=== PATIENT | female | born 1955 | race Caucasian/White ===

== ENCOUNTER → 2016-10-04 | Outpatient (CLI) | payer BC ==
--- NOTE | 2016-10-04 15:25 | MY ---
EXAMINATION: Left digital diagnostic mammogram. HISTORY: Screening exam. Comparison is made to previous studies dated abnormal screening. FINDINGS: A left ML view was obtained and a spot compression image was obtained in the medial aspe ct of the breast on the CC view. With spot compression, the previously visualized single view asymme try is not identified. This likely represents summation artifact. Otherwise, no abnormal mass or kike cification noted. IMPRESSION: BI-RADS category I - negative mammogram. Continued screening according to ACR-ACS gu idelines suggested. THE FALSE-NEGATIVE RATE OF MAMMOGRAM IS APPROXIMATELY 10%. MANAGEMENT OF A PALPABLE ABNORMALITY MUST BE BASED UPON CLINICAL GROUNDS. SENSITIVITY FOR DETECTION OF ABNORMALITIES IN DENSE BREASTS IS LOW. NOTE: A letter will be sent to the patient regarding findings. [facility] -- LAURA Price [phone] - FAX [phone]
== END ==
LOC: MW.MAM 09:52
PROVIDERS: ATTEND Nurse Practitioner Women's Health
DX: R92.2 Inconclusive mammogram (principal)
CPT/HCPCS: G0206-26-LT; G0206-LT

== ENCOUNTER 2018-12-10 15:47 | Observation (INO) | payer BC, OTHER ==
[2018-12-10] MEDS ORDERED: Sodium Chloride 0.9% 2.5 ML Syringe FLUSH PRN (15:56)
[2018-12-10] MEDS ORDERED: Ondansetron 4 MG/2 ML SDV IVPUSH ONE (15:56)
[2018-12-10] MEDS ORDERED: Sodium Chloride 0.9% 10 ML Syringe FLUSH PRN (15:56)
--- NOTE | 2018-12-10 15:57 | EDM.PDOC ---
ED HPI GENERAL MEDICAL PROBLEM - General Stated Complaint: FELL DOWN STAIRS Time Seen by Provider: 12/10/18 15:55 Source of Information: Reports: EMS History Limitations: Reports: No Limitations - History of Present Illness INITIAL COMMENTS - FREE TEXT/NARRATIVE: History of present illness: []Patient was on third step cleaning a window when she lost her balance and fell hit her head on concrete. She was brought in by EMS sitting up on a gurney had a normal blood blood sugar on scene and vomited once while being moved in the ambulance. Stated that she did not eat today but is amnestic to the event and to the date. Review of systems: As per history of present illness and below otherwise all systems reviewed and negative. Past medical history: As per history of present illness and as reviewed below otherwise noncontributory. Surgical history: As per history of present illness and as reviewed below otherwise noncontributory. Social history: No reported history of drug or alcohol abuse. Family history: As per history of present illness and as reviewed below otherwise noncontributory. Physical exam: General: Well developed, well nourished in NAD HEENT: Posterior scalp laceration, normocephalic, pupils reactive, negative for conjunctival pallor or scleral icterus, mucous membranes moist, throat clear, neck supple, nontender, trachea midline. Lungs: Clear to auscultation, breath sounds equal bilaterally, chest nontender. Heart: S1S2, regular, negative for clicks, rubs, or JVD. Abdomen: NABS, Soft, nondistended, nontender. Negative for masses or hepatosplenomegaly. Negative for costovertebral tenderness. Pelvis: Stable nontender. Genitourinary: Deferred. Rectal: Deferred. Extremities: Atraumatic, negative for cords or calf pain. Neurovascular unremarkable. Neuro: Awake, alert, confused and disoriented to time. Cranial nerves II through XII unremarkable. Cerebellum unremarkable. Motor and sensory unremarkable throughout. Exam nonfocal. Skin:warm and dry Diagnostics: CT head and cervical spine-negative Therapeutics: Scalp laceration closed with patsy ED Course: Patient remained stable Impression: Fall, scalp laceration, concussion Prescriptions: Plan: Admit to Dr. AVILES for observation Definitive disposition and diagnosis as appropriate pending reevaluation and review of above. Head Pain Score (Numeric/FACES): 2 - Related Data Allergies Allergy/AdvReac Type Severity Reaction Status Date / Time codeine Allergy Hives Verified 12/10/18 19:34 Home Meds: Home Meds Levothyroxine 25 mcg PO ACBREAKFAST 12/10/18 [History] ED ROS GENERAL - Review of Systems Review Of Systems: ROS reveals no pertinent complaints other than HPI. ED EXAM, HEAD INJURY - Physical Exam Exam: See Below (History of present illness) ED LACERATION/WOUND & ALEC PROC - Laceration/Wound Repair Scalp Appearance: Subcutaneous Skin Prep: Chlorhexidine (Hibiciens) Closed with: Patsy Drain Placement: No Sterile Dressing Applied: Nurse Tetanus Status Addressed: Yes Complications: No Course - Vital Signs Last Recorded V/S: Last Vital Signs Temp 98.2 F 12/11/18 07:37 Pulse 109 H 12/11/18 07:37 Resp 16 12/11/18 07:37 BP 125/74 12/11/18 07:37 Pulse Ox 98 12/11/18 07:37 - Orders/Labs/Meds Orders: Active Orders 24 hr Category Date Time Status Vaccines to be Administered [RC] PER UNIT ROUTINE Care 12/10/18 16:45 Active Sodium Chloride 0.9% [Saline Flush] Med 12/10/18 15:56 Active 10 ml FLUSH ASDIRECTED PRN Sodium Chloride 0.9% [Saline Flush] Med 12/10/18 15:56 Active 2.5 ml FLUSH ASDIRECTED PRN Saline Lock Insert [OM.PC] Stat Oth 12/10/18 15:55 Ordered Medication Orders Sodium Chloride (Saline Flush) 10 ml FLUSH ASDIRECTED PRN PRN Reason: Keep Vein Open Last Admin: 12/10/18 17:21 Dose: 10 ml Sodium Chloride (Saline Flush) 2.5 ml FLUSH ASDIRECTED PRN PRN Reason: Keep Vein Open Last Admin: 12/10/18 17:21 Dose: 2.5 ml Meds: Medications Generic Name Dose Route Start Last Admin Trade Name Freq PRN Reason Stop Dose Admin Sodium Chloride 10 ml 12/10/18 15:56 12/10/18 17:21 Saline Flush FLUSH 10 ml ASDIRECTED PRN Administration Keep Vein Open Sodium Chloride 2.5 ml 12/10/18 15:56 12/10/18 17:21 Saline Flush FLUSH 2.5 ml ASDIRECTED PRN Administration Keep Vein Open Discontinued Medications Generic Name Dose Route Start Last Admin Trade Name Freq PRN Reason Stop Dose Admin Diphtheria/Tetanus/Acell Pertussis 0.5 ml 12/10/18 16:45 12/10/18 17:15 Adacel IM 12/10/18 16:46 0.5 ml .ONCE ONE Administration Lidocaine HCl 5 ml 12/10/18 16:54 12/10/18 17:21 Xylocaine-Mpf 1% INJECT 12/10/18 16:55 Not Given ONETIME ONE Ondansetron HCl 4 mg 12/10/18 15:56 12/10/18 16:31 Zofran IVPUSH 12/10/18 15:57 4 mg ONETIME ONE Administration Departure - Departure Time of Disposition: 18:00 Disposition: Refer to Observation Clinical Impression: Concussion Qualifiers: Encounter type: initial encounter Loss of consciousness presence/duration: with LOC of unspecified duration Qualified Code(s): S06.0X9A - Concussion with loss of consciousness of unspecified duration, initial encounter Scalp laceration Qualifiers: Encounter type: initial encounter Qualified Code(s): S01.01XA - Laceration without foreign body of scalp, initial encounter Fall Qualifiers: Encounter type: initial encounter Qualified Code(s): W19.XXXA - Unspecified fall, initial encounter - Discharge Information *PRESCRIPTION DRUG MONITORING PROGRAM REVIEWED*: No *COPY OF PRESCRIPTION DRUG MONITORING REPORT IN PATIENT ASHUTOSH: No - My Orders Last 24 Hours: My Active Orders 12/10/18 15:55 Saline Lock Insert [OM.PC] Stat 12/10/18 15:56 Sodium Chloride 0.9% [Saline Flush] 10 ml FLUSH ASDIRECTED PRN Sodium Chloride 0.9% [Saline Flush] 2.5 ml FLUSH ASDIRECTED PRN 12/10/18 16:45 Vaccines to be Administered [RC] PER UNIT ROUTINE - Assessment/Plan Last 24 Hours: My Active Orders 12/10/18 15:55 Saline Lock Insert [OM.PC] Stat 12/10/18 15:56 Sodium Chloride 0.9% [Saline Flush] 10 ml FLUSH ASDIRECTED PRN Sodium Chloride 0.9% [Saline Flush] 2.5 ml FLUSH ASDIRECTED PRN 12/10/18 16:45 Vaccines to be Administered [RC] PER UNIT ROUTINE
--- NOTE | 2018-12-10 16:43 | CT ---
INDICATION: Fall TECHNIQUE: CT cervical spine without contrast. COMPARISON: None FINDINGS: Vertebral alignment: Alignment is normal. Vertebrae: There are no fractures or suspicious bony lesions. Discs and facet joints: Disc spaces and facets are within normal limits. Extraspinal findings: Prevertebral soft tissues, visualized airway, and visualized lungs are unremarkable. IMPRESSION: Unremarkable cervical spine CT. Dictated by Zain Hebert MD @ 12/10/2018 4:42:24 PM Please note that all CT scans at this facility use dose modulation, iterative reconstruction, and/or weight-based dosing when appropriate to reduce radiation dose to as low as reasonably achievable. Dictated by: Zain Hebert MD @ 12/10/2018 16:42:30 (Electronically Signed)
[2018-12-10] MEDS ORDERED: Diphtheria,Pertussis(Acell),Tetanus Vaccine 0.5 ML Syringe IM ONE (16:45)
--- NOTE | 2018-12-10 16:50 | CT ---
INDICATION: Syncope, fall, possible LOC TECHNIQUE: CT head without contrast. COMPARISON: None FINDINGS: CSF spaces: Within normal limits for age. Brain parenchyma: The minor-white differentiation is normal. No sign of mass, hemorrhage, or midline shift. Skull base and calvarium: The visualized paranasal sinuses and mastoid air cells demonstrate no acute or significant findings. The visualized orbits are grossly unremarkable. No skull fractures. High right parietal scalp hematoma with laceration. IMPRESSION: Right parietal scalp hematoma with no associated fractures or evidence of acute intracranial trauma. Dictated by Zain Hebert MD @ 12/10/2018 4:48:25 PM Please note that all CT scans at this facility use dose modulation, iterative reconstruction, and/or weight-based dosing when appropriate to reduce radiation dose to as low as reasonably achievable. Dictated by: Zain Hebert MD @ 12/10/2018 16:48:32 (Electronically Signed)
--- NOTE | 2018-12-11 11:14 | PCM.SN ---
- Free Text/Narrative Note: pt seen, chart reviewed; admit for observation for trauma SHIRLENE; [id number]
--- NOTE | 2018-12-11 12:49 | HP ---
DATE OF : 1955 PRIMARY CARE PHYSICIAN: None PCP ADMISSION DIAGNOSIS: Trauma observation. 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 Lost her balance, hit her head on concrete, and lost consciousness. She was brought in via EMS. At the ER, workup, negative hand and negative C-spine and had a normal blood glucose, but has a large laceration on the scalp. Surgery was consulted for trauma observation. The patient this morning is completely good. She knows that she lost consciousness, but she is alert and oriented x3, and she is very hungry. Denied any numbness or motor weakness. Denied prior episode. Denied shortness of breath. Denied chest pain. PAST MEDICAL HISTORY: Significant for hypothyroid and denied diabetes, MT, CVA, hypertension. PAST SURGICAL HISTORY: Unknown. ALLERGIES: Please refer to nursing for details. MEDICATION: Please refer to nursing for details. SOCIAL HISTORY: Unknown. PHYSICAL EXAMINATION: GENERAL: A very pleasant, nice lady in no acute distress. HEENT: With a turban dressing on her head and dressing is totally beautiful and clean. Sclerae anicteric. Nontender on the face. Tympanic membrane is intact. Trachea is midline. No subcu crepitus. LUNGS: Clear to auscultation. HEART: Regular rate and rhythm. NECK: No pain. BACK: Does not have any injury. ABDOMEN: Soft, nontender, nondistended. No pulsating midline abdominal structure. NEUROLOGIC: The patient is 5/5 on motor of bilateral upper extremity and bilateral lower extremity. ASSESSMENT AND PLANNING: The patient has sustained a fall, sustained a head trauma, and loss of consciousness. The patient is admitted to observation and will be examined in the morning. Followed with serial examination. ADILSON / RICCO /[id number]
== END 2018-12-11 13:05 | disposition home or self-care (01) ==
LOC: MW.ED 15:47 → MW.MS 17:01 → MW.ED 17:59
PROVIDERS: ADMIT Surgery; ATTEND Surgery
DX: S06.0X9A Concussion with loss of consciousness of unspecified duration, initial encounter (principal); S01.01XA Laceration without foreign body of scalp, initial encounter; E03.9 Hypothyroidism, unspecified; W18.39XA Other fall on same level, initial encounter; Z88.5 Allergy status to narcotic agent; Y93.H3 Activity, building and construction; Y99.0 Civilian activity done for income or pay
CPT/HCPCS: 70450; 72125; 90471; 90715; 96374; 99285; G0378; J2405

== ENCOUNTER 2019-03-12 06:39 | Day surgery (SDC) | payer BC, OTHER ==
[~2019-03-12 06:39] MED LIST: Lactated Ringers 1,000 ML IV SCH
--- NOTE | 2019-03-12 07:13 | PCM.PREANE ---
Preanesthetic Assessment - Anesthesia/Transfusion/Family Hx Anesthesia History: Prior Anesthesia Without Reaction Family History of Anesthesia Reaction: No Transfusion History: No Prior Transfusion(s) Intubation History: Unknown - Review of Systems General: No Symptoms Pulmonary: No Symptoms Cardiovascular: No Symptoms Gastrointestinal: No Symptoms, Other (screening, grandma had colon cancer) Neurological: No Symptoms Other: Reports: None - Physical Assessment Height: 4 ft 11 in Weight: 67.132 kg ASA Class: 2 Mental Status: Alert & Oriented x3 Airway Class: Mallampati = 2 Dentition: Reports: Dentures (upper and lower) Thyro-Mental Finger Breadths: 3 Mouth Opening Finger Breadths: 3 ROM/Head Extension: Full Lungs: Clear to Auscultation, Normal Respiratory Effort Cardiovascular: Regular Rate, Regular Rhythm - Allergies Allergies/Adverse Reactions: Allergies Allergy/AdvReac Type Severity Reaction Status Date / Time codeine Allergy Hives Verified 03/10/19 08:33 latex Allergy Rash Verified 03/10/19 08:34 Penicillins Allergy Hives Verified 03/10/19 08:34 - Blood Blood Available: No - Anesthesia Plan Pre-Op Medication Ordered: None - Acknowledgements Anesthesia Type Planned: MAC Pt an Appropriate Candidate for the Planned Anesthesia: Yes Alternatives and Risks of Anesthesia Discussed w Pt/Guardian: Yes Pt/Guardian Understands and Agrees with Anesthesia Plan: Yes PreAnesthesia Questionnaire HEENT History: Reports: Other (See Below) Other HEENT History: reading glasses, top and bottom denture Cardiovascular History: Reports: None Respiratory History: Reports: None Gastrointestinal History: Reports: None Genitourinary History: Reports: None COREMAKER BENCH History: Reports: None Musculoskeletal History: Reports: None Neurological History: Reports: Concussion, Vertigo Psychiatric History: Reports: None Endocrine/Metabolic History: Reports: Hypothyroidism Hematologic History: Reports: None Immunologic History: Reports: None Oncologic (Cancer) History: Reports: None Dermatologic History: Reports: None - Infectious Disease History Infectious Disease History: Reports: None - Past Surgical History Head Surgeries/Procedures: Reports: None HEENT Surgical History: Reports: None Cardiovascular Surgical History: Reports: None Respiratory Surgical History: Reports: None GI Surgical History: Reports: Appendectomy Female Surgical History: Reports: None Endocrine Surgical History: Reports: None, Thyroidectomy Neurological Surgical History: Reports: None Musculoskeletal Surgical History: Reports: None Oncologic Surgical History: Reports: None Dermatological Surgical History: Reports: None - SUBSTANCE USE Smoking Status *Q: Former Smoker Tobacco Use Within Last Twelve Months: No Recreational Drug Use History: No - HOME MEDS Home Medications: Home Meds Cholecalciferol (Vitamin D3) [Vitamin D3] 1,000 units PO DAILY 03/10/19 [History ] Cyanocobalamin (Vitamin B12) [Vitamin B12] 250 mcg PO DAILY 03/10/19 [History] Fish Oil/[place]-3 Fatty Acids [Fish Oil 1,000 MG] 1,000 mg PO DAILY 03/10/19 [ History] Garlic 1 tab PO DAILY 03/10/19 [History] Iron 18 mg PO DAILY 03/10/19 [History] Meclizine HCl [Travel Sickness] 1 tab PO ASDIRECTED PRN 03/10/19 [History] Selenium 100 mcg PO DAILY 03/10/19 [History] Thyroid,Pork [Nature-Throid] 130 mg PO DAILY 03/10/19 [History] - CURRENT (IN HOUSE) MEDS Current Meds: Current Medications Lactated Ringer's (Ringers, Lactated) 1,000 mls @ 125 mls/hr IV ASDIRECTED DAVID
[2019-03-12] MEDS ORDERED: Propofol 200 MG/20 ML SDV ONE (07:37)
[2019-03-12] MEDS ORDERED: Midazolam 1 MG/ML 2 ML SDV ONE (07:37)
[2019-03-12] MEDS ORDERED: Ondansetron 4 MG/2 ML SDV ONE (07:37)
[2019-03-12] MEDS ORDERED: fentaNYL 100 MCG/2 ML SDV ONE (07:37)
--- NOTE | 2019-03-12 08:23 | PCM.OPNOTE ---
- General Post-Op/Procedure Note Date of Surgery/Procedure: 03/12/19 Operative Procedure(s): colonoscopy Findings: see dict [id number] Pre Op Diagnosis: scrn colonoscopy Post-Op Diagnosis: diverticulosis Anesthesia Technique: Moderate Sedation Primary Surgeon: Chalino Lafleur Complications: None Condition: Good
--- NOTE | 2019-03-12 08:39 | PCM.POSTAN ---
POST ANESTHESIA ASSESSMENT - MENTAL STATUS Mental Status: Alert, Oriented - RESPIRATORY Respiratory Status: Respiratory Rate WNL, Airway Patent, O2 Saturation Stable - CARDIOVASCULAR CV Status: Pulse Rate WNL, Blood Pressure Stable - GASTROINTESTINAL GI Status: No Symptoms - PAIN Pain Score: 0 - POST OP HYDRATION Hydration Status: Adequate & Stable - OBSERVATIONS Free Text/Narrative:: No anesthesia problems, patient skipped recovery room stage of postoperative care.
--- NOTE | 2019-03-12 10:32 | OR ---
SURGEON: Chalino Lafleur MD DATE OF PROCEDURE: 03/12/2019 PREOPERATIVE DIAGNOSIS: Screening colonoscopy. POSTOPERATIVE DIAGNOSIS: Diverticulosis. PROCEDURE PERFORMED: Colonoscopy. DESCRIPTION OF PROCEDURE: The patient was taken to the endoscopy room. A time out was called, patient identified, and procedure identified. Diprivan was then administrated. Patient went from awake to sleep, hearing doctor talking or door closing is normal. Perineum inspection and digital examination were then performed. A well- lubricated colonoscope was gently inserted through the rectum, advanced past the rectosigmoid junction, the descending colon, splenic flexure, transverse colon, hepatic flexure, ascending colon, arrived to the cecum. Cecum was identified as dictated in the finding. Then the scope was carefully withdrawn while attention was paid to the mucosal surface for any abnormality. Air will be sucked out during the scope withdrawal. At the rectum, retroflexed to examine any rectal diseases, fistula or hemorrhoids. Patient tolerated procedure well. There were no intraoperative complications, and Dr. Lalfeur was present throughout the whole procedure. FINDINGS: 1. The patient is easily sedated with CRIMINAL PROFILER and Diprivan, the patient is soundly snoring. 2. Bowel prep is excellent, the best, not a speck of liquid stool or semi- formed stool. She really should be the example of all the bowel prep. She did a very good with bowel prep. 3. Colon rather straightforward. Cecum indicated by ileocecal fold, one-to- one indentation, and appendiceal orifice. Light emittance is not observed. Mucosa examined upon scope pulling out. The patient has a large amount of diverticulosis concentrated on the sigmoid colon. No signs or symptoms of diverticulitis and no polyp, inflammation, stricture, ulceration, AV malformation, bleeding, none of those. The patient does not have internal hemorrhoid. The patient has mild external hemorrhoid. The patient would benefit from repeat colonoscopy in 10 years from today or if clinically indicated otherwise. ADILSON / RICCO /[id number]
== END 2019-03-12 08:50 | disposition home or self-care (01) ==
LOC: MW.SDS 06:39
PROVIDERS: ATTEND Surgery
DX: Z12.11 Encounter for screening for malignant neoplasm of colon (principal); K57.30 Diverticulosis of large intestine without perforation or abscess without bleeding; K64.4 Residual hemorrhoidal skin tags; E03.9 Hypothyroidism, unspecified; Z88.5 Allergy status to narcotic agent; Z88.0 Allergy status to penicillin; Z91.040 Latex allergy status; Z87.891 Personal history of nicotine dependence; Z79.899 Other long term (current) drug therapy
CPT/HCPCS: 45378; J2250; J2405; J2704; J3010; J7120; 00812

== ENCOUNTER 2023-08-13 19:16 | Emergency (ER) | payer MEDICARE ==
[2023-08-13] MEDS ORDERED: Labetalol 100 MG/20 ML MDV IVPUSH ONE (19:45)
[2023-08-13 20:01] LABS: BASOPHILS ABSOLUTE AUTO 0.04 K/uL (0.00-0.20); BASOPHILS PERCENT AUTO 0.4 % (0.0-1.0); EOSINOPHILS ABSOLUTE AUTO 0.05 K/uL (0.00-0.45); EOSINOPHILS PERCENT AUTO 0.5 % (0.0-6.0); HEMATOCRIT 40.6 % (37.0-47.0); HEMOGLOBIN 14.3 g/dL (12.0-16.0); IMMATURE GRAN ABSOLUTE AUTO 0.02 K/uL (0.00-0.05); IMMATURE GRAN PERCENT AUTO 0.2 % (0.0-0.4); LYMPHOCYTES ABSOLUTE AUTO 1.55 K/uL (1.00-4.80); MEAN CORPUSCULAR HEMOGLOBIN 30.8 pg (28.0-32.0); MEAN CORPUSCULAR HGB CONC 35.2 g/dL (32.0-36.0); MEAN CORPUSCULAR VOLUME 87.3 fL (83.0-99.0); MEAN PLATELET VOLUME 10.1 fL (9.4-12.3); MONOCYTES ABSOLUTE AUTO 0.75 K/uL (0.00-0.80); MONOCYTES PERCENT AUTO 6.8 % (0.0-8.0); NEUTROPHILS ABSOLUTE AUTO 8.68 K/uL (1.80-7.70); NEUTROPHILS PERCENT AUTO 78.1 % (41.0-71.0); PLATELET COUNT,PLT 244 K/uL (150-400); RED BLOOD CELL COUNT 4.65 M/uL (4.10-5.30); WHITE BLOOD CELL COUNT,WBC 11.09 K/uL (3.9-11.3)
[2023-08-13 20:19] LABS: INR 1.03 (0.86-1.11); PTT,PARTIAL THROMBOPLSTIN TIME 24.9 SEC (23.9-30.7)
[2023-08-13 20:39] LABS: A/G RATIO 1.1 (0.9-1.6); ALBUMIN 3.7 g/dL (3.4-5.0); BILIRUBIN TOTAL 0.6 mg/dL (0.2-1.0); CALCIUM 9.1 mg/dL (8.5-10.1); CARBON DIOXIDE,CO2 25.9 mmol/L (21.0-32.0); CREATININE 1.3 mg/dL (0.6-1.0); EST CRCL DRUG DOSING (CG) 29.34 mL/min; MAGNESIUM 1.9 mg/dL (1.8-2.4); POTASSIUM,K 4.2 mmol/L (3.5-5.1); T3 FREE 3.27 pg/mL (2.18-3.98); T4 FREE 1.8 ng/dL (0.76-1.46); TSH ULTRASENSITIVE 0.03 uIU/mL (0.36-3.74)
== END 2023-08-13 21:48 | disposition home or self-care (01) ==
LOC: MW.ED 19:16
DX: E03.9 Hypothyroidism, unspecified (principal); Z88.0 Allergy status to penicillin; Z88.8 Allergy status to other drugs, medicaments and biological substances; Z91.040 Latex allergy status; Z79.899 Other long term (current) drug therapy; Z90.49 Acquired absence of other specified parts of digestive tract
CPT/HCPCS: 36415; 80053; 83735; 84439; 84443; 84481; 85025; 85610; 85730; 96374; 99285; J1921

== ENCOUNTER 2023-12-10 19:22 | Emergency (ER) | payer MEDICARE, OTHER ==
[2023-12-10] MEDS: diphenhydrAMINE 25 MG Cap PO ONE (20:25)
[2023-12-10] MEDS: Famotidine 20 MG Tab PO ONE (20:25)
[2023-12-10] MEDS: Cetirizine 10 MG Tab PO ONE (20:25)
[2023-12-10] MEDS: Ondansetron 4 MG Tab.DIS PO ONE (20:25)
== END 2023-12-10 21:20 | disposition home or self-care (01) ==
LOC: MW.ED 19:22
DX: H61.002 Unspecified perichondritis of left external ear (principal); H60.92 Unspecified otitis externa, left ear; T49.6X5A Adverse effect of otorhinolaryngological drugs and preparations, initial encounter; Z88.5 Allergy status to narcotic agent; Z91.040 Latex allergy status; Z88.0 Allergy status to penicillin; Z88.1 Allergy status to other antibiotic agents; Z79.899 Other long term (current) drug therapy; E03.9 Hypothyroidism, unspecified
CPT/HCPCS: 99283; A9270